=== PATIENT | male | born 1975 | race Asian ===

== ENCOUNTER 2017-03-28 03:08 | Emergency (ER) | payer OTHER ==
[~2017-03-28] VITALS: Ht 165.1 cm; Wt 72.1 kg
[2017-03-28 03:08] VITALS: BP_SYST 113
[2017-03-28] MEDS ORDERED: LORazepam 2 MG/ML VIAL (FOR ER USE) IVP ONE (04:00)
[2017-03-28] MEDS ORDERED: NACL 0.9% 1,000 ML IV ONE (04:00)
[2017-03-28] MEDS ORDERED: ASPIRIN 81 MG TAB.CHEW PO ONE (04:00)
[2017-03-28 04:14] LABS: BASOPHILS # (AUTO) 0.1 K/uL (0.0-0.2); BASOPHILS % (AUTO) 0.5 % (0.0-2.0); EOSINOPHILS # (AUTO) 0.5 K/uL (0.0-0.4); EOSINOPHILS % (AUTO) 4.8 % (0.0-4.0); HEMATOCRIT 40.6 % (36-54); HEMOGLOBIN 13.6 g/dL (14.0-18.0); LYMPHOCYTES # (AUTO) 2.4 K/uL (1.0-5.5); LYMPHOCYTES % (AUTO) 23.9 % (20.5-51.5); MEAN CORPUSCULAR HEMOGLOBIN 29 pg (27-31); MEAN CORPUSCULAR HGB CONC 34 % (32-36); MEAN CORPUSCULAR VOLUME 87 fL (79.0-98.0); MONOCYTES # (AUTO) 0.7 K/uL (0.0-1.0); MONOCYTES % (AUTO) 7.1 % (1.7-9.3); NEUTROPHILS # (AUTO) 6.5 K/uL (1.8-7.7); NEUTROPHILS % (AUTO) 63.7 % (40.0-70.0); PLATELET COUNT (AUTO) 564 K/uL (130-430); RED BLOOD CELL COUNT(AUTO) 4.64 MIL/uL (4.2-6.2); RED CELL DISTRIBUTION WIDTH 12.6 % (9.0-15.0); WHITE BLOOD COUNT (AUTO) 10.2 K/uL (4.8-10.8)
[2017-03-28 04:23] LABS: CALCIUM 8.4 mg/dL (8.4-11.0); CREATININE 0.81 mg/dL (0.55-1.30); POTASSIUM 3.8 mmol/L (3.5-5.1)
[2017-03-28 04:27] LABS: ALBUMIN 3.8 g/dL (3.4-4.8); TOTAL BILIRUBIN 0.3 mg/dL (0.0-1.0)
[2017-03-28 05:10] VITALS: BP_SYST 115
== END 2017-03-28 05:10 | disposition home or self-care (01) ==
LOC: SED 03:08
DX: F41.0 Panic disorder [episodic paroxysmal anxiety] (principal)
CPT/HCPCS: 36415; 71010; 80053; 84484; 85025; 85730; 93005; 96361; 96374; 99285; J2060; J7030

== ENCOUNTER 2022-04-19 13:32 | Emergency (ER) | payer SELFPAY ==
[~2022-04-19] VITALS: Ht 165.1 cm; Wt 56.7 kg
[2022-04-19 13:44] VITALS: BP_SYST 108
--- NOTE | 2022-04-19 15:10 | NUR ---
Pt brought by self, A&Ox4, pt presents to ER with abdominal pain and nausea, pt afebrile, skin pink and warm , cap refill <3, VSS.
--- NOTE | 2022-04-19 15:15 | NUR ---
Dr Davidson evaluating patient at bedside
[2022-04-19 15:49] LABS: BASOPHILS # (AUTO) 0.1 K/uL (0.0-0.2); BASOPHILS % (AUTO) 0.8 % (0.0-2.0); EOSINOPHILS # (AUTO) 0.1 K/uL (0.0-0.4); EOSINOPHILS % (AUTO) 1.2 % (0.0-4.0); HEMATOCRIT 42.7 % (36-54); HEMOGLOBIN 14.8 g/dL (14.0-18.0); LYMPHOCYTES # (AUTO) 1.7 K/uL (1.0-5.5); LYMPHOCYTES % (AUTO) 18.7 % (20.5-51.5); MEAN CORPUSCULAR HEMOGLOBIN 30 pg (27-31); MEAN CORPUSCULAR HGB CONC 35 % (32-36); MEAN CORPUSCULAR VOLUME 85 fL (79.0-98.0); MONOCYTES # (AUTO) 0.7 K/uL (0.0-1.0); MONOCYTES % (AUTO) 8.1 % (1.7-9.3); NEUTROPHILS # (AUTO) 6.6 K/uL (1.8-7.7); NEUTROPHILS % (AUTO) 71.2 % (40.0-70.0); PLATELET COUNT (AUTO) 603 K/uL (130-430); RED BLOOD CELL COUNT(AUTO) 5.01 MIL/uL (4.2-6.2); WHITE BLOOD COUNT (AUTO) 9.2 K/uL (4.8-10.8)
[2022-04-19 16:06] LABS: CALCIUM 9.6 mg/dL (8.4-11.0); CREATININE 1.04 mg/dL (0.55-1.30)
[2022-04-19 16:11] LABS: ALBUMIN 4.2 g/dL (3.4-4.8); TOTAL BILIRUBIN 0.7 mg/dL (0.0-1.0)
[2022-04-19] MEDS ORDERED: PRED20TA PO (16:54)
[2022-04-19] MEDS ORDERED: OMEP40CA20 PO (16:54)
[2022-04-19] MEDS ORDERED: ALBMDI INH (16:54)
[2022-04-19 17:33] VITALS: BP_SYST 108
--- NOTE | 2022-04-19 17:40 | NUR ---
Patient given written and verbal discharge instructions and verbalizes understanding. ER MD discussed with patient the results and treatment provided. Patient in stable condition. ID arm band removed. Rx of Ventolin,Omeprazole and prednisone given. Patient educated on pain management and to follow up with PMD. Pain Scale 3/10 . Opportunity for questions provided and answered. Medication side effect fact sheet provided.
== END 2022-04-19 17:40 | disposition home or self-care (01) ==
LOC: SED 13:32
DX: J42 Unspecified chronic bronchitis (principal); R10.31 Right lower quadrant pain; R05.9 Cough, unspecified; R09.81 Nasal congestion; Z79.899 Other long term (current) drug therapy
CPT/HCPCS: 36415; 71045; 76376; 80053; 81002; 83690; 85025; 99285